=== PATIENT | female | born 1960 | race Caucasian/White ===

== ENCOUNTER 2022-06-01 17:23 | Inpatient (IN) | payer BC, MEDICAID, SELFPAY ==
[~2022-06-01] VITALS: Ht 162.6 cm; Wt 131.8 kg
[~2022-06-01 17:23] MED LIST: ASPI-1265 PO; CALC1TAB86 PO; LISI20TA28 PO; MULT-227 PO; OMEP-84 PO
[2022-06-01 18:32] LABS: BASOPHILS % (AUTO) 0.2 % (0-1); EOSINOPHILS # (AUTO) 0.1 X10'3 (0-0.9); HEMATOCRIT 47.1 % (35.0-45.0); HEMOGLOBIN 15.6 g/dl (12.0-16.0); LYMPHOCYTES # (AUTO) 2.1 X10'3 (1.1-4.8); LYMPHOCYTES % (AUTO) 14.1 % (21-51); MEAN CORPUSCULAR HEMOGLOBIN 29.3 PG (27.0-31.0); MEAN CORPUSCULAR HGB CONC 33.1 g/dL (33.0-36.5); MEAN CORPUSCULAR VOLUME 88.6 FL (78-98); MEAN PLATELET VOLUME 8.2 FL (7.4-10.4); MONOCYTES % (AUTO) 6.9 % (2-12); NEUTROPHILS # (AUTO) 11.6 X10'3 (1.8-7.7); NEUTROPHILS % (AUTO) 77.8 % (42-75); PLATELET COUNT 325 X10'3 (140-440); RED BLOOD COUNT 5.32 X10'6 (4.20-5.60); RED CELL DISTRIBUTION WIDTH 14.6 % (11.5-14.5); WHITE BLOOD COUNT 14.9 X10'3 (4.5-11.0)
[2022-06-01 18:51] LABS: ALANINE AMINOTRANSFERASE 33 U/L (12-78); ALBUMIN 3.7 G/DL (3.4-5.0); ALBUMIN/GLOBULIN RATIO 0.8 (1.1-1.5); ALKALINE PHOSPHATASE 137 IU/L (46-116); ANION GAP 11 (8-16); ASPARTATE AMINO TRANSFERASE 20 U/L (10-37); BLOOD UREA NITROGEN 14 MG/DL (7-18); BUN/CREATININE RATIO 18.9 (6.6-38.0); CALCIUM 9.4 MG/DL (8.5-10.1); CHLORIDE 104 MMOL/L (99-107); CREATININE 0.74 MG/DL (0.40-0.90); GLUCOSE 177 MG/DL (70-104); LIPASE < 50 U/L (73-393); POTASSIUM 4.1 MMOL/L (3.5-5.1); SODIUM 141 MMOL/L (135-145); TOTAL PROTEIN 8.2 G/DL (6.4-8.2); eGFR 79 ML/MIN
[2022-06-01] MEDS ORDERED: normal saline 1000ML IV soln IVB ONE (22:40)
[2022-06-01] MEDS ORDERED: dicyclomine 10 MG capsule PO ONE ×2 (22:40→22:55)
[2022-06-01] MEDS ORDERED: ondansetron 4mg rapidly disintigrating tab PO ONE (22:55)
[2022-06-01] MEDS ORDERED: acetaminophen 650mg rectal suppository RC PRN (23:45)
[2022-06-01] MEDS ORDERED: acetaminophen 325mg tablet PO PRN ×2 (23:45)
[2022-06-01] MEDS ORDERED: ondansetron/PF 4mg/2ml inj IV PRN (23:45)
[2022-06-01] MEDS ORDERED: morphine 2 MG/ML inj. syringe IV PRN ×2 (23:45)
[2022-06-01] MEDS ORDERED: diphenhydrAMINE 50 mg/ml inj IV PRN (23:45)
[2022-06-01] MEDS ORDERED: HYDROcodone/acetaminophen 10/325mg tab PO PRN (23:45)
[2022-06-01] MEDS ORDERED: diphenhydrAMINE 25mg capsule PO PRN (23:45)
[2022-06-01] MEDS ORDERED: mag hydrox/Alum hydrox/simeth 30ml oral suspension PO PRN (23:45)
[2022-06-01] MEDS ORDERED: magnesium hydroxide 30ml (MOM) UD suspension PO PRN (23:45)
[2022-06-01] MEDS ORDERED: ondansetron 4mg rapidly disintigrating tab PO PRN (23:45)
[2022-06-01] MEDS ORDERED: bisacodyl 10mg suppository rectal RC PRN (23:45)
[2022-06-01] MEDS ORDERED: HYDROcodone/acetaminophen 5mg/325mg tablet PO PRN (23:45)
[2022-06-01] MEDS ORDERED: glucagon, human recombinant 1mg kit SUBCUT PRN (23:55)
[2022-06-01] MEDS ORDERED: DEXTROSE 15 GM of carb/4 tabs (each vial/BOTTLE has 4 tablets) PO PRN ×2 (23:55)
[2022-06-01] MEDS ORDERED: MESSAGE TO PHARMACY PO ONE (23:55)
[2022-06-01] MEDS ORDERED: dextrose 50%-water 50ml dispensing syringe IV PRN ×2 (23:55)
[2022-06-01] MEDS ORDERED: insulin Lispro (HumaLOG) vial - multi-dose SQ SCH (23:55)
[2022-06-02 00:06] LABS: HEMOGLOBIN A1C 6.8 % (4.5-6.2)
[2022-06-02 00:17] LABS: MAGNESIUM 2.2 MG/DL (1.5-2.4); PHOSPHORUS 3.5 MG/DL (2.3-4.5)
[2022-06-02 00:52] LABS: APTT 27 SECONDS (22-32)
[2022-06-02] MEDS: normal saline 1000ml 1,000 ML IV SCH ×3 (01:11→20:02)
--- NOTE | 2022-06-02 01:25 | NUR ---
Assumed care of pt. @ 0030 after recieving report, pt. resting quietly. Verbalizes some relief of abd discomfort with Bentyl.
[2022-06-02] MEDS ORDERED: LISI40TA13 PO (01:57)
--- NOTE | 2022-06-02 02:15 | NUR ---
Patient in room [facility]. I have received report from XAVI Carroll and had the opportunity to ask questions and assume patient care.
[2022-06-02 02:30] VITALS: BP 124/84
--- NOTE | 2022-06-02 02:30 | NUR ---
pt arrived to floor in . settled into bed.
[2022-06-02 02:33] LABS: CLARITY,URINE CLEAR (Clear); COLOR,URINE YELLOW (Yellow); GLUCOSE, URINE NEGATIVE (Neg); KETONES,URINE NEGATIVE (Neg); LEUKOCYTE ESTERASE ,URINE NEGATIVE (Neg); NITRITES, URINE NEGATIVE (Neg); OCCULT BLOOD,URINE NEGATIVE (Neg); PROTEIN,URINE NEGATIVE (Neg); UROBILINOGEN,URINE 0.2 E.U/dL (0.2-1.0)
[2022-06-02 02:34] LABS: URINE HCG NEGATIVE (NEG)
[2022-06-02 02:39] LABS: UA COLLECTION TYPE CLN CATCH MIDSTREAM
[2022-06-02 02:56] LABS: URINE AMPHETAMINE SCREEN NEGATIVE (Neg); URINE BARBITUATE SCREEN NEGATIVE (Neg); URINE BENZODIAZEPINES SCREEN NEGATIVE (Neg); URINE CANNABINOID SCREEN NEGATIVE (Neg); URINE COCAINE SCREEN NEGATIVE (Neg); URINE METHADONE SCREEN NEGATIVE (Neg); URINE OPIATE SCREEN NEGATIVE (Neg); URINE PHENCYCLIDINE SCREEN NEGATIVE (Neg)
[2022-06-02 06:00] VITALS: BP 134/85
--- NOTE | 2022-06-02 06:15 | NUR ---
Problems reprioritized. Patient report given, questions answered & plan of care reviewed with FELI Williamson.
[2022-06-02 06:55] LABS: BASOPHILS % (AUTO) 0.2 % (0-1); EOSINOPHILS # (AUTO) 0.2 X10'3 (0-0.9); EOSINOPHILS % (AUTO) 1.8 % (0-6); HEMATOCRIT 41.7 % (35.0-45.0); HEMOGLOBIN 14.1 g/dl (12.0-16.0); LYMPHOCYTES # (AUTO) 2.1 X10'3 (1.1-4.8); LYMPHOCYTES % (AUTO) 21.5 % (21-51); MEAN CORPUSCULAR HEMOGLOBIN 29.9 PG (27.0-31.0); MEAN CORPUSCULAR HGB CONC 33.7 g/dL (33.0-36.5); MEAN CORPUSCULAR VOLUME 88.8 FL (78-98); MEAN PLATELET VOLUME 8.3 FL (7.4-10.4); MONOCYTES # (AUTO) 0.8 X10'3 (0-0.9); NEUTROPHILS # (AUTO) 6.5 X10'3 (1.8-7.7); NEUTROPHILS % (AUTO) 68.5 % (42-75); PLATELET COUNT 251 X10'3 (140-440); RED CELL DISTRIBUTION WIDTH 14.7 % (11.5-14.5); WHITE BLOOD COUNT 9.6 X10'3 (4.5-11.0)
[2022-06-02 07:45] LABS: ALANINE AMINOTRANSFERASE 18 U/L (12-78); ALBUMIN/GLOBULIN RATIO 0.9 (1.1-1.5); ALKALINE PHOSPHATASE 112 IU/L (46-116); ANION GAP 10 (8-16); ASPARTATE AMINO TRANSFERASE 14 U/L (10-37); BILIRUBIN,TOTAL 0.9 MG/DL (0.1-1.0); BLOOD UREA NITROGEN 13 MG/DL (7-18); BUN/CREATININE RATIO 18.1 (6.6-38.0); CALCIUM 8.4 MG/DL (8.5-10.1); CHLORIDE 107 MMOL/L (99-107); CHOL/HDL RATIO 2.9 (0.00-4.99); CHOLESTEROL 105 MG/DL (0-200); CREATININE 0.72 MG/DL (0.40-0.90); GLUCOSE 166 MG/DL (70-104); HDL CHOLESTEROL 36 MG/DL (35-60); LDL CHOLESTEROL 52 MG/DL (50-100); POTASSIUM 3.6 MMOL/L (3.5-5.1); SODIUM 142 MMOL/L (135-145); TOTAL CARBON DIOXIDE 25.1 MMOL/L (24-32); TOTAL PROTEIN 6.2 G/DL (6.4-8.2); TRIGLYCERIDES 128 MG/DL (20-135); eGFR 82 ML/MIN
[2022-06-02] MEDS: docusate sod 100mg capsule PO SCH ×2 (08:00→20:00)
[2022-06-02] MEDS: pantoprazole 40mg IV 80 MG in normal saline 100ml IV soln 100 ML IV SCH (08:06)
[2022-06-02 11:00] VITALS: BP 136/87
[2022-06-02] MEDS ORDERED: DULA0.75 SQ (14:25)
[2022-06-02] MEDS ORDERED: ATOR20TA66 PO (14:25)
[2022-06-02] MEDS ORDERED: CHOL200074 PO (14:27)
[2022-06-02] MEDS ORDERED: CYAN100T47 PO (14:27)
[2022-06-02] MEDS ORDERED: METO-384 PO (15:15)
[2022-06-02 18:30] VITALS: BP 154/72
--- NOTE | 2022-06-02 18:30 | NUR ---
Report received from Teri Almazan.
--- NOTE | 2022-06-02 18:31 | NUR ---
Problems reprioritized. Patient report given, questions answered & plan of care reviewed with XAVI Cook.
[2022-06-02 22:00] VITALS: BP 144/69
[2022-06-03 05:00] LABS: BASOPHILS % (AUTO) 0.3 % (0-1); EOSINOPHILS # (AUTO) 0.2 X10'3 (0-0.9); HEMATOCRIT 39.3 % (35.0-45.0); HEMOGLOBIN 13.1 g/dl (12.0-16.0); LYMPHOCYTES % (AUTO) 28.5 % (21-51); MEAN CORPUSCULAR HEMOGLOBIN 29.7 PG (27.0-31.0); MEAN CORPUSCULAR HGB CONC 33.3 g/dL (33.0-36.5); MEAN CORPUSCULAR VOLUME 89.2 FL (78-98); MEAN PLATELET VOLUME 8.2 FL (7.4-10.4); MONOCYTES # (AUTO) 0.4 X10'3 (0-0.9); MONOCYTES % (AUTO) 6.3 % (2-12); NEUTROPHILS # (AUTO) 4.3 X10'3 (1.8-7.7); NEUTROPHILS % (AUTO) 61.9 % (42-75); PLATELET COUNT 213 X10'3 (140-440); RED BLOOD COUNT 4.41 X10'6 (4.20-5.60); RED CELL DISTRIBUTION WIDTH 14.4 % (11.5-14.5)
[2022-06-03 05:17] LABS: ALANINE AMINOTRANSFERASE 16 U/L (12-78); ALBUMIN 2.6 G/DL (3.4-5.0); ALBUMIN/GLOBULIN RATIO 0.9 (1.1-1.5); ALKALINE PHOSPHATASE 99 IU/L (46-116); ANION GAP 8 (8-16); ASPARTATE AMINO TRANSFERASE 12 U/L (10-37); BILIRUBIN,TOTAL 0.7 MG/DL (0.1-1.0); BLOOD UREA NITROGEN 9 MG/DL (7-18); CALCIUM 8.1 MG/DL (8.5-10.1); CHLORIDE 112 MMOL/L (99-107); GLUCOSE 122 MG/DL (70-104); POTASSIUM 3.6 MMOL/L (3.5-5.1); SODIUM 145 MMOL/L (135-145); TOTAL PROTEIN 5.6 G/DL (6.4-8.2); eGFR > 90 ML/MIN
[2022-06-03] MEDS: normal saline 1000ml 1,000 ML IV SCH ×3 (05:20→14:53)
--- NOTE | 2022-06-03 06:16 | NUR ---
Report to Alana HURLEY.
[2022-06-03 07:00] VITALS: BP 129/75
[2022-06-03] MEDS: docusate sod 100mg capsule PO SCH ×2 (07:15→20:00)
[2022-06-03] MEDS: pantoprazole 40mg IV 80 MG in normal saline 100ml IV soln 100 ML IV SCH (07:34)
[2022-06-03 07:47] VITALS: BP 129/75
[2022-06-03] MEDS: aspirin 81mg tab.chew PO SCH (08:00)
[2022-06-03] MEDS: metoprolol succinate 25mg (24-HOUR) SR. Tablet PO SCH (08:00)
[2022-06-03] MEDS ORDERED: cholecalciferol (vitamin D3) 1,000 unit (25mcg) tablet PO SCH ×2 (08:00→12:22)
--- NOTE | 2022-06-03 09:18 | NUR ---
DM consult: Per EMR pt with T2DM, well controlled with A1c 6.8%. DM education not warranted at this time. Will continue to follow. Addendum: 06/03/22 at [address] Amended: Links added.
[2022-06-03] MEDS: atorvastatin 20mg tablet PO SCH (10:44)
[2022-06-03] MEDS: lisinopril 20mg tablet PO SCH (10:44)
[2022-06-03] MEDS: multivitamins, therapeutics tablet PO SCH (10:45)
[2022-06-03 11:00] VITALS: BP 133/80
[2022-06-03 12:57] VITALS: BP 148/76
[2022-06-03 18:00] VITALS: BP 144/71
--- NOTE | 2022-06-03 18:33 | NUR ---
Problems reprioritized. Patient report given, questions answered & plan of care reviewed with Clementina HURLEY.
[2022-06-03] MEDS: diatr meglu/diatrizoate 30ml oral sol.-(3 dose) bottle PO SCH (20:36)
[2022-06-03 22:00] VITALS: BP 163/72
[2022-06-04 05:20] LABS: BASOPHILS % (AUTO) 0.3 % (0-1); EOSINOPHILS # (AUTO) 0.2 X10'3 (0-0.9); HEMOGLOBIN 12.5 g/dl (12.0-16.0); LYMPHOCYTES # (AUTO) 2.2 X10'3 (1.1-4.8); LYMPHOCYTES % (AUTO) 30.3 % (21-51); MEAN CORPUSCULAR HEMOGLOBIN 29.9 PG (27.0-31.0); MEAN CORPUSCULAR HGB CONC 33.8 g/dL (33.0-36.5); MEAN CORPUSCULAR VOLUME 88.5 FL (78-98); MEAN PLATELET VOLUME 8.3 FL (7.4-10.4); MONOCYTES # (AUTO) 0.5 X10'3 (0-0.9); NEUTROPHILS # (AUTO) 4.3 X10'3 (1.8-7.7); NEUTROPHILS % (AUTO) 59.4 % (42-75); PLATELET COUNT 202 X10'3 (140-440); RED BLOOD COUNT 4.18 X10'6 (4.20-5.60); RED CELL DISTRIBUTION WIDTH 14.4 % (11.5-14.5); WHITE BLOOD COUNT 7.3 X10'3 (4.5-11.0)
[2022-06-04 05:30] VITALS: BP 154/66
[2022-06-04 05:30] LABS: ALANINE AMINOTRANSFERASE 18 U/L (12-78); ALBUMIN 2.6 G/DL (3.4-5.0); ALBUMIN/GLOBULIN RATIO 0.9 (1.1-1.5); ALKALINE PHOSPHATASE 96 IU/L (46-116); ANION GAP 6 (8-16); ASPARTATE AMINO TRANSFERASE 25 U/L (10-37); BILIRUBIN,TOTAL 0.6 MG/DL (0.1-1.0); BLOOD UREA NITROGEN 6 MG/DL (7-18); BUN/CREATININE RATIO 11.1 (6.6-38.0); CALCIUM 7.9 MG/DL (8.5-10.1); CHLORIDE 113 MMOL/L (99-107); CREATININE 0.54 MG/DL (0.40-0.90); GLUCOSE 118 MG/DL (70-104); POTASSIUM 3.5 MMOL/L (3.5-5.1); SODIUM 145 MMOL/L (135-145); TOTAL CARBON DIOXIDE 25.6 MMOL/L (24-32); TOTAL PROTEIN 5.5 G/DL (6.4-8.2); eGFR > 90 ML/MIN
--- NOTE | 2022-06-04 06:18 | NUR ---
Problems reprioritized. Patient report given, questions answered & plan of care reviewed with Rosalie HURLEY. Addendum: 06/04/22 at 0619 by Clementina Montes RN Amended: Links added.
--- NOTE | 2022-06-04 06:20 | NUR ---
Patient in room [facility]. I have received report from XAVI Mcrae and had the opportunity to ask questions and assume patient care.
[2022-06-04] MEDS: docusate sod 100mg capsule PO SCH (08:00)
[2022-06-04] MEDS ORDERED: pantoprazole 40MG/NS 100ML BAG 100 ML IV SCH ×2 (08:00)
[2022-06-04] MEDS: metoprolol succinate 25mg (24-HOUR) SR. Tablet PO SCH (08:00)
[2022-06-04] MEDS: diatr meglu/diatrizoate 30ml oral sol.-(3 dose) bottle PO SCH ×2 (08:14→10:18)
[2022-06-04] MEDS: multivitamins, therapeutics tablet PO SCH (08:22)
[2022-06-04] MEDS: aspirin 81mg tab.chew PO SCH (08:22)
[2022-06-04] MEDS: atorvastatin 20mg tablet PO SCH (08:23)
[2022-06-04] MEDS: lisinopril 20mg tablet PO SCH (08:23)
[2022-06-04] MEDS ORDERED: iohexol 300mg/ml 100ml inj. ONE (09:26)
[2022-06-04 10:00] VITALS: BP 160/72
[2022-06-04] MEDS: normal saline 1000ml 1,000 ML IV SCH (11:45)
--- NOTE | 2022-06-04 17:30 | NUR ---
DC inst provided to pt & her son. IV DC'd, tip intact. All belongings sent w/pt. WC to vehicle.
[2022-06-08] MEDS ORDERED: DULAGLUTIDE 0.75 MG/0.5 ML SQ SCH (08:00)
== END 2022-06-04 18:07 | disposition home or self-care (01) | DRG 247 ==
LOC: ER 17:24 → ED HOLD 23:49 → EDBEDREQ 06-02 00:53 → SUR 3N 06-02 02:33
PROVIDERS: ADMIT Family Medicine; ATTEND Family Medicine
PROC: 0D9670Z Drainage of Stomach with Drainage Device, Via Natural or Artificial Opening (ICD-10-PCS; principal; 2022-06-02)
DX: K56.50 Intestinal adhesions [bands], unspecified as to partial versus complete obstruction (principal); E11.9 Type 2 diabetes mellitus without complications; E66.01 Morbid (severe) obesity due to excess calories; R19.7 Diarrhea, unspecified; I10 Essential (primary) hypertension; K21.9 Gastro-esophageal reflux disease without esophagitis; K43.9 Ventral hernia without obstruction or gangrene; Z68.42 Body mass index [BMI] 45.0-49.9, adult; Z90.49 Acquired absence of other specified parts of digestive tract; Z88.0 Allergy status to penicillin; Z88.8 Allergy status to other drugs, medicaments and biological substances; Z91.040 Latex allergy status; Z79.899 Other long term (current) drug therapy
CPT/HCPCS: 36415; 74176; 74177; 80053; 80061; 80305; 81003; 81025; 82948; 83036; 83605; 83690; 83735; 83880; 84100; 85025; 85610; 85730; 87040; 87081; 96360; 99285; C9113; G0378; J1815; J3490; J7030; Q9963; Q9967

== ENCOUNTER 2024-02-25 21:32 | Emergency (ER) | payer MEDICAID ==
[~2024-02-25] VITALS: Ht 162.6 cm; Wt 114.5 kg
[~2024-02-25 21:32] MED LIST changes: +ATOR20TA66 PO; -CALC1TAB86 PO; +CHOL200074 PO; +CYAN100T47 PO; +DULA0.75 SQ; -LISI20TA28 PO; +LISI40TA13 PO; +METO-384 PO; -OMEP-84 PO
[2024-02-25 21:37] VITALS: BP 165/77; PULSE 95; TEMP 98.9; O2SAT 98
[2024-02-25] MEDS ORDERED: HYDR-3965 PO (21:55)
[2024-02-25] MEDS ORDERED: BENZ9GEL TOP (21:55)
[2024-02-25] MEDS ORDERED: CLIN-97 PO (21:55)
[2024-02-25] MEDS: HYDROcodone/acetaminophen 5mg/325mg tablet PO ONE (22:10)
[2024-02-25 22:13] VITALS: RESP 18
== END 2024-02-25 22:14 | disposition home or self-care (01) ==
LOC: ER 21:32
DX: K08.89 Other specified disorders of teeth and supporting structures (principal); E11.9 Type 2 diabetes mellitus without complications; Z88.0 Allergy status to penicillin; Z88.8 Allergy status to other drugs, medicaments and biological substances; Z79.82 Long term (current) use of aspirin; Z79.899 Other long term (current) drug therapy; Z98.890 Other specified postprocedural states
CPT/HCPCS: 99283